=== PATIENT | female | born 1940 | race Caucasian/White ===

== ENCOUNTER 2019-03-01 07:15 | Day surgery (SDC) | payer OTHER ==
[2019-03-01] MEDS ORDERED: Ringers Lactate 0 ML IV ONE (08:01)
[2019-03-01] MEDS ORDERED: BUPIVACAINE 0.25% PF 10 ML VIAL ONE (08:03)
[2019-03-01] MEDS ORDERED: CYCLOPENTOLATE 1% OPTH 2 ML ONE (08:03)
[2019-03-01] MEDS ORDERED: CYCLOPENTOLATE 1% OPTH 2 ML OPTH ONE ×2 (08:03→08:08)
[2019-03-01] MEDS ORDERED: LIDOCAINE 2% MPF 5 ML VIAL ONE ×2 (08:03→08:59)
[2019-03-01] MEDS ORDERED: PHENYLEPHRINE 10% OPTH 5ML OPTH ONE ×2 (08:03→08:08)
[2019-03-01] MEDS ORDERED: PHENYLEPHRINE 10% OPTH 5ML ONE (08:04)
[2019-03-01] MEDS ORDERED: TETRACAINE HCL 0.5% 4ML OPTH ONE (08:04)
[2019-03-01] MEDS ORDERED: NA CHLORIDE 0.9% 500 ML ONE (08:05)
[2019-03-01] MEDS ORDERED: LIDOCAINE HCL/PF 3.5% OPTH GEL ONE (08:07)
[2019-03-01] MEDS ORDERED: BALANCED SALT IRRIG PLAIN 500 ML BTL IRR ONE (08:19)
[2019-03-01] MEDS ORDERED: DUOVISC 1 KIT OPTH ONE (08:19)
[2019-03-01] MEDS ORDERED: NS 0.9% VIAL 10 ML ONE (08:19)
[2019-03-01] MEDS ORDERED: EPINEPHRINE/PF 1 MG/ML AMP ONE (08:19)
[2019-03-01] MEDS ORDERED: MOXIFLOXACIN HCL 10 DROPS/ML **OR USE OPTH ONE (08:20)
[2019-03-01] MEDS ORDERED: LIDOCAINE 1% MPF 2 ML AMPULE ONE (08:20)
[2019-03-01] MEDS ORDERED: PROPOFOL 200 MG/20 ML VIAL IV ONE (08:59)
[2019-03-01] MEDS ORDERED: MIDAZOLAM HCL 2 MG/2 ML INJ ONE (09:26)
[2019-03-01] MEDS ORDERED: FENTANYL CITR 100 MCG/2 ML ONE (09:26)
--- NOTE | 2019-03-01 09:54 | P.BOP ---
Preoperative diagnosis: Nuclear sclerotic cataract OD Postoperative diagnosis: Same Primary procedure: Phacoemulsification with IOL OD Estimated blood loss: None Anesthesia: Local (Topical with anesthesia for cataract surgery) Complications: None Implants: ZCB00 +22.0 Transferred to: Other (Day surgery) Condition: Good
--- NOTE | 2019-03-01 11:57 | OP ---
Date of Procedure: 03/01/2019 Surgeon: Kimberly Bhardwaj MD Anesthesiologist: Taylor Parker CRNA and Zohaib Mccoy MD. Preoperative Diagnosis: Nuclear sclerotic cataract OD (right eye). Operation Performed: Phacoemulsification with intraocular lens implant, right eye. Anesthesia: Per cataract surgery. Complications: None. Description Of Procedure: In the operating room the patient was prepped and draped in the usual ster ile fashion for ophthalmic surgery. A lid speculum was placed in the right eye. Two paracentesis si jay were made superiorly and inferiorly in the limbal cornea. Viscoat was placed in the anterior simon mber and a crescent blade was used to make a corneal groove and tunnel, and a keratome was used to en ter the anterior chamber. Provisc was placed in the anterior chamber and a 360 degree capsulotomy wa s performed with a cystitome. The lens was hydrodissected with BSS and rotated freely. The lens was removed with a stop and chop technique. 20.36 phaco CDE was used to remove the lens. Residual kia ex was removed with the irrigation and aspiration. Provisc was placed in the capsular bag. A ZCB00 +22.0 Lens was placed in the capsular bag without complications. Irrigation and aspiration was used to remove residual viscoelastic. The paracentesis sites were hydrated with BSS. The wound and parac entesis sites were inspected and found to be watertight. Vigamox 0.07 cc was placed intracamerally a t the end of the procedure. The eye was irrigated with balanced salt solution. The eye was patched with a soft cotton patch and Boyce metal shield. The patient was returned to day surgery in good condition. Comments: Akten was placed in the eye in Day surgery and irrigated out of the eye with BSS in the OR . Preservative-free lidocaine was placed in the anterior chamber prior to Viscoat. Discharge Instructions: Ms. Gallegos is discharged to home in good condition and is to follow up edmund Bhardwaj in the morning. MOSES/RHINA Voice ID: [id number] Report ID: [id number]
== END 2019-03-01 10:28 | disposition home or self-care (01) ==
LOC: OR 07:15
PROVIDERS: ATTEND Ophthalmology Retina Specialist
PROC: 08RJ3JZ Replacement of Right Lens with Synthetic Substitute, Percutaneous Approach (ICD-10-PCS; principal; 2019-03-01 09:50)
DX: H25.11 Age-related nuclear cataract, right eye (principal); H04.123 Dry eye syndrome of bilateral lacrimal glands; H40.059 Ocular hypertension, unspecified eye; I10 Essential (primary) hypertension; E03.9 Hypothyroidism, unspecified; E78.00 Pure hypercholesterolemia, unspecified; Z85.820 Personal history of malignant melanoma of skin; Z88.2 Allergy status to sulfonamides; Z83.518 Family history of other specified eye disorder
CPT/HCPCS: 66984; J0171; J2250; J3010; J2001; J2704

== ENCOUNTER 2019-04-12 07:35 | Day surgery (SDC) | payer OTHER ==
[2019-04-12] MEDS ORDERED: EPINEPHRINE/PF 1 MG/ML AMP ONE (09:04)
[2019-04-12] MEDS ORDERED: DUOVISC 1 KIT OPTH ONE (09:04)
[2019-04-12] MEDS ORDERED: BALANCED SALT IRRIG PLAIN 500 ML BTL IRR ONE (09:04)
[2019-04-12] MEDS ORDERED: NS 0.9% VIAL 10 ML ONE (09:04)
[2019-04-12] MEDS ORDERED: MOXIFLOXACIN HCL 10 DROPS/ML **OR USE OPTH ONE (09:05)
[2019-04-12] MEDS ORDERED: BSS OPTHALMIC SOL 15 ML BOT OPTH ONE (09:06)
[2019-04-12] MEDS: PHENYLEPHRINE 10% OPTH 5ML ONE ×3 (09:12→09:23)
[2019-04-12] MEDS: CYCLOPENTOLATE 1% OPTH 2 ML ONE ×3 (09:12→09:23)
[2019-04-12] MEDS ORDERED: LIDOCAINE 2% MPF 5 ML VIAL ONE (09:17)
[2019-04-12] MEDS ORDERED: BUPIVACAINE 0.25% PF 10 ML VIAL ONE (09:17)
[2019-04-12] MEDS ORDERED: NA CHLORIDE 0.9% 500 ML ONE (09:17)
[2019-04-12] MEDS ORDERED: TETRACAINE HCL 0.5% 4ML OPTH ONE (09:17)
[2019-04-12] MEDS: LIDOCAINE HCL/PF 3.5% OPTH GEL ONE ×2 (09:26→09:43)
[2019-04-12] MEDS ORDERED: MIDAZOLAM HCL 2 MG/2 ML INJ ONE (09:35)
[2019-04-12] MEDS: LIDOCAINE 1% MPF 2 ML AMPULE ONE ×2 (09:55→09:56)
--- NOTE | 2019-04-12 10:22 | P.BOP ---
Preoperative diagnosis: Nuclear sclerotic cataract OS Postoperative diagnosis: Same Primary procedure: Phacoemulsification with IOL OS Estimated blood loss: None Anesthesia: Local (Topical with anesthesia for cataract surgery) Complications: None Implants: ZCB00 +22.5 Transferred to: Other (Day surgery) Condition: Good
--- NOTE | 2019-04-12 11:32 | OP ---
Date of Procedure: 04/12/2019 Surgeon: Kimberly Bhardwaj MD Anesthesiologist: Michael Lane CRNA and Zohaib Mccoy MD Preoperative Diagnosis: Nuclear sclerotic cataract, left eye. Operation Performed: Phacoemulsification with intraocular lens implant, left eye. Anesthesia: Per cataract surgery. Complications: None. Description Of Procedure: In the operating room the patient was prepped and draped in the usual ster ile fashion for ophthalmic surgery. A lid speculum was placed in the left eye. Two paracentesis sit es were made superiorly and inferiorly in the limbal cornea. Viscoat was placed in the anterior les angie and a crescent blade was used to make a corneal groove and tunnel, and a keratome was used to ent er the anterior chamber. Provisc was placed in the anterior chamber and a 360 degree capsulotomy was performed with a cystitome. The lens was hydrodissected with BSS and rotated freely. The lens was removed with a stop and chop technique. 16.76 phaco CDE was used to remove the lens. Residual bethanie x was removed with the irrigation and aspiration. Provisc was placed in the capsular bag. A ZCB00 + 22.5 lens was placed in the capsular bag without complications. Irrigation and aspiration was used t o remove residual viscoelastic. The paracentesis sites were hydrated with BSS. The wound and parace ntesis sites were inspected and found to be watertight. Vigamox 0.07 cc was placed intracamerally at the end of the procedure. The eye was irrigated with balanced salt solution. The eye was patched w ith a soft cotton patch and Boyce metal shield. The patient was returned to day surgery in good condition. Comments: Akten was placed in the eye in Day Surgery and irrigated out of the eye with BSS in the OR . Preservative free 1% lidocaine was placed in the anterior chamber prior to Viscoat. Discharge Instructions: Ms. Gallegos is discharged home in good condition and is to follow up with Aysha Bhardwaj in the morning. MOSES/RHINA Voice ID: [id number] Report ID: [id number]
== END 2019-04-12 10:55 | disposition home or self-care (01) ==
LOC: OR 07:35
PROVIDERS: ATTEND Ophthalmology Retina Specialist
PROC: 08RK3JZ Replacement of Left Lens with Synthetic Substitute, Percutaneous Approach (ICD-10-PCS; principal; 2019-04-12 09:45)
DX: H25.12 Age-related nuclear cataract, left eye (principal); H40.053 Ocular hypertension, bilateral; H04.123 Dry eye syndrome of bilateral lacrimal glands; H35.30 Unspecified macular degeneration; I10 Essential (primary) hypertension; E03.9 Hypothyroidism, unspecified; E78.00 Pure hypercholesterolemia, unspecified; Z85.820 Personal history of malignant melanoma of skin; Z88.2 Allergy status to sulfonamides; Z83.518 Family history of other specified eye disorder
CPT/HCPCS: 66984; J0171; J2250; J2001